=== PATIENT | female | born 1955 | race Caucasian/White ===

== ENCOUNTER → 2017-09-30 | Outpatient (CLI) | payer OTHER ==
[~2017-09-30] MED LIST: BACLOFEN 10MG T10 MG PO; FLEXERIL10 MG PO; MOTRIN600 MG PO; NORVASC 10MG. T10 MG PO; NYSTATIN CREAM;15 GM EX; OMEGA-31 CAP PO; PENICILLIN VK250 MG PO; PERCOCET 5/3251 EACH PO; PHENERGAN 25MG.25 M1 PO; ULTRAM50 MG PO; ZOFRAN ODT4 MG PO; [UNRECOGNIZED DRUG - OTHER] PO
--- NOTE | 2017-09-30 14:23 | RADIOLOGY REPORT PS360 ---
HIP LT 2-3V W/PELVIS IF PERFOR HISTORY: BILAT HIP PAIN, RT GREATER THAN LEFT ORDERING PHYSICIAN: Pamela Hwang APRN PATIENT AGE: 61 years COMPARISON: 04/11/2015 FINDINGS: There is an old fracture of the left superior pubic ramus with the ischium as well as the left inferior pubic ramus. There is mild inferior displacement of the medial fracture fragments x 8 mm. The hip joint has an unremarkable appearance. No evidence of acute fracture or dislocation. IMPRESSION: Old left superior and inferior pubic rami fractures
--- NOTE | 2017-09-30 14:24 | RADIOLOGY REPORT PS360 ---
HIP RT 2-3V W/PELVIS IF PERFOR HISTORY: BILAT HIP PAIN, RT GREATER THAN LEFT ORDERING PHYSICIAN: Pamela Hwang APRN PATIENT AGE: 61 years COMPARISON: 04/11/2015 FINDINGS: There are old right superior and inferior pubic rami fractures. There is inferior displacement of the medial fracture fragment of the superior pubic ramus fracture. Inferior displacement is approximately 2 cm. No bony apposition of the superior pubic ramus fracture. The right hip joint has an unremarkable appearance. IMPRESSION: 1. Old right superior and inferior pubic rami fractures as described above. The superior pubic ramus fracture is displaced with no bony apposition superiorly 2. Unremarkable right hip
== END ==
LOC: RAD 12:39
DX: M25.552 Pain in left hip (principal)